=== PATIENT | female | born 1990 ===

== ENCOUNTER 2024-03-19 10:29 | Outpatient (CLI) | payer OTHER | END 2024-03-19 10:31 | disposition home or self-care (01) | LOC: PRENATAL 10:29 | PROVIDERS: ATTEND Obstetrics & Gynecology Maternal & Fetal Medicine | DX: O36.80X0 Pregnancy with inconclusive fetal viability, not applicable or unspecified (principal); Z36.82 Encounter for antenatal screening for nuchal translucency; Z36.9 Encounter for antenatal screening, unspecified; Z14.8 Genetic carrier of other disease; O09.529 Supervision of elderly multigravida, unspecified trimester; O14.90 Unspecified pre-eclampsia, unspecified trimester; Z3A.15 15 weeks gestation of pregnancy ==

== ENCOUNTER 2024-04-22 08:00 | Outpatient (CLI) | payer OTHER | END 2024-04-22 08:01 | disposition home or self-care (01) | LOC: PRENATAL 08:00 | PROVIDERS: ATTEND Obstetrics & Gynecology Maternal & Fetal Medicine | DX: O44.00 Complete placenta previa NOS or without hemorrhage, unspecified trimester (principal); O09.529 Supervision of elderly multigravida, unspecified trimester; O14.90 Unspecified pre-eclampsia, unspecified trimester; Z3A.20 20 weeks gestation of pregnancy ==

== ENCOUNTER 2024-07-16 11:14 | Outpatient (CLI) | payer OTHER | END 2024-07-16 11:15 | disposition home or self-care (01) | LOC: PRENATAL 11:14 | PROVIDERS: ATTEND Obstetrics & Gynecology Maternal & Fetal Medicine | DX: O26.849 Uterine size-date discrepancy, unspecified trimester (principal); O36.8199 Decreased fetal movements, unspecified trimester, other fetus; O09.529 Supervision of elderly multigravida, unspecified trimester; O14.90 Unspecified pre-eclampsia, unspecified trimester; O99.019 Anemia complicating pregnancy, unspecified trimester; Z3A.33 33 weeks gestation of pregnancy ==